=== PATIENT | female | born 1980 | race Asian ===

== ENCOUNTER 2021-06-18 09:11 | Emergency (ER) | payer OTHER ==
[2021-06-18 09:15] VITALS: BP 96/62; PULSE 73; TEMP 98; BMI 27.4
[2021-06-18] MEDS ORDERED: FAMOTIDINE 20 MG TABLET PO ONE (09:21)
[2021-06-18] MEDS ORDERED: FAMOTIDINE 20 MG TABLET ONE (09:26)
== END 2021-06-18 09:39 | disposition home or self-care (01) ==
LOC: FER 09:11
PROC: 3E0233Z Introduction of Anti-inflammatory into Muscle, Percutaneous Approach (ICD-10-PCS; principal; 2021-06-18)
DX: S80.862A Insect bite (nonvenomous), left lower leg, initial encounter (principal); W57.XXXA Bitten or stung by nonvenomous insect and other nonvenomous arthropods, initial encounter; Y92.9 Unspecified place or not applicable
CPT/HCPCS: 99283-25